=== PATIENT | male | born 1965 ===

== ENCOUNTER 2025-04-09 11:15 | Inpatient (IN) | payer OTHER ==
[~2025-04-09] VITALS: Ht 30.5 cm; Wt 102.5 kg
[2025-04-09] MEDS ORDERED: LISINOPRIL5 MG PO (11:43)
[2025-04-09] MEDS ORDERED: JARDIANCE10 MG PO (11:43)
[2025-04-09] MEDS ORDERED: INDAPAMIDE2.5 MG PO (11:44)
[2025-04-09] MEDS ORDERED: LIPITOR20 MG (11:44)
[2025-04-09] MEDS ORDERED: VITAMIN D310 MCG/1 M (11:45)
[2025-04-09] MEDS ORDERED: VITAMIN B12 (11:46)
[2025-04-09 11:50] VITALS: BP 144/87
[2025-04-17] MEDS ORDERED: DEXAMETHASONE SODIUM PHOSPHATE 4 MG/ML VIAL ONE (07:14)
[2025-04-17] MEDS ORDERED: VITAMIN B-121000 MC4 (08:58)
[2025-04-17] MEDS ORDERED: MORPHINE SULFATE 4 MG/ML VIAL IV ONE (12:10)
[2025-04-17] MEDS ORDERED: ONDANSETRON HCL 2 MG/ML VIAL IV PRN (13:45)
[2025-04-17] MEDS ORDERED: DEXTROSE 50 % IN WATER 0.5 G/ML VIAL IV PRN (13:45)
[2025-04-17] MEDS ORDERED: ENALAPRILAT DIHYDRATE 1.25 MG/ML VIAL IV PRN (13:45)
[2025-04-17] MEDS ORDERED: SODIUM CHLORIDE 0.45 % 1,000 ML IV SCH (13:45)
[2025-04-17] MEDS ORDERED: INSULIN LISPRO 1,000 UNIT/10 ML UNITS SUBCUTANEO PRN (13:45)
[2025-04-17 16:18] VITALS: BP 120/64; O2SAT 98
[2025-04-17] MEDS ORDERED: TRAMADOL HCL 50 MG TABLET PO SCH (17:00)
[2025-04-17] MEDS ORDERED: ACETAMINOPHEN 500 MG GEL..CAP PO SCH (17:00)
[2025-04-17] MEDS ORDERED: DIPHENHYDRAMINE HCL 75 MG,LIDOCAINE HCL 30 ML,MAG HYDROX/ALUMINUM HYD/SIMETH 30 ML PO SCH (17:00)
[2025-04-17] MEDS ORDERED: CYCLOBENZAPRINE HCL 5 MG TABLET PO SCH (17:00)
[2025-04-17] MEDS ORDERED: PANTOPRAZOLE SODIUM 40 MG/VIAL VIAL IV PUSH SCH (21:00)
[2025-04-18] VITALS: BP 116/74; O2SAT 100
[2025-04-18] MEDS ORDERED: INDAPAMIDE 2.5 MG TABLET PO SCH (09:00)
[2025-04-18] MEDS ORDERED: LISINOPRIL 5 MG TABLET PO SCH (09:00)
[2025-04-18] MEDS ORDERED: ATORVASTATIN CALCIUM 20 MG TABLET PO SCH (09:00)
== END 2025-04-18 12:08 | disposition home or self-care (01) | DRG 627 ==
LOC: SURG 04-17 08:16 → O/R 04-17 08:16 → SURH 04-17 09:15 → SURG 04-17 12:51
PROVIDERS: ADMIT Surgery; ATTEND Surgery
PROC: 0GBP0ZZ Excision of Left Inferior Parathyroid Gland, Open Approach (ICD-10-PCS; principal; 2025-04-17 09:15)
DX: D35.1 Benign neoplasm of parathyroid gland (principal); E21.0 Primary hyperparathyroidism